=== PATIENT | male | born 1960 | race Native Hawaiian/Other Pacific Islander ===

== ENCOUNTER 2021-02-03 12:09 | Emergency (ER) | payer OTHER ==
[~2021-02-03] VITALS: Ht 177.8 cm; Wt 117.9 kg
[2021-02-03 12:18] VITALS: BP 141/101; TEMP 98.9
[2021-02-03] MEDS ORDERED: COZAAR100 MG PO (12:51)
[2021-02-03] MEDS ORDERED: METO50TA27 PO (12:52)
== END 2021-02-03 12:31 | disposition home or self-care (01) ==
LOC: ED 12:09
DX: Z53.21 Procedure and treatment not carried out due to patient leaving prior to being seen by health care provider (principal)
CPT/HCPCS: 99281